=== PATIENT | female | born 1965 ===

== ENCOUNTER 2017-06-29 06:44 | Day surgery (SDC) | payer OTHER ==
[2017-06-29 07:53] VITALS: O2SAT 100
[2017-06-29] MEDS ORDERED: Propofol 10 mg/ml Inj (20 ML) ONE (08:02)
[2017-06-29] MEDS ORDERED: Lactated Ringer's 500 ML IV SCH (08:15)
[2017-06-29] MEDS ORDERED: Atropine Sulfate 0.4 mg/ml (0.8mg/2ml) Syringe IV ONE (08:29)
[2017-06-29 09:24] VITALS: RESP 14; TEMP 98
[2017-06-29 09:50] VITALS: BP 110/76; PULSE 66
== END 2017-06-29 09:46 | disposition home or self-care (01) ==
LOC: C.ENDO 06:44
PROVIDERS: ATTEND Internal Medicine Gastroenterology
DX: Z12.11 Encounter for screening for malignant neoplasm of colon (principal); D12.7 Benign neoplasm of rectosigmoid junction; K64.1 Second degree hemorrhoids; K57.30 Diverticulosis of large intestine without perforation or abscess without bleeding; I10 Essential (primary) hypertension; E78.5 Hyperlipidemia, unspecified; F41.9 Anxiety disorder, unspecified; Z90.710 Acquired absence of both cervix and uterus; Z96.651 Presence of right artificial knee joint; Z98.890 Other specified postprocedural states; Z79.82 Long term (current) use of aspirin; Z79.899 Other long term (current) drug therapy; Z88.5 Allergy status to narcotic agent
CPT/HCPCS: 45385; 88305; J2704; J3010; J7120